=== PATIENT | female | born 1965 | race African-American/Black ===

== ENCOUNTER 2016-10-08 16:20 | Observation (INO) | payer MEDICARE ==
[~2016-10-08] VITALS: Ht 167.6 cm; Wt 105.0 kg
--- NOTE | ~2016-10-08 | OP ---
PATIENT NAME: ALISON ALCANTAR MEDICAL RECORD: [id number] :69 LOCATION:D.M2 D.2119 ADMISSION DATE:10/08/16 SURGEON: CHECO CLARK MD OPERATION DATE: 10/09/16 PROCEDURES: 1. Left heart catheterization. 2. Selective coronary angiography. 3. Left ventriculogram. INDICATION: Chest pain. PROCEDURE IN DETAIL: After informed consent was obtained and after detailed explanation of risks, benefits, as well as alternative therapies, the patient elected to proceed with angiogram. The right radial area was prepped and draped in a normal sterile fashion. The right radial artery was cannulated via modified Seldinger technique with placement o f 5-Croatian sheath. All catheters exchanged through this sheath. FINDINGS: Left ventriculogram was performed in standard 30 degree ALAS view, reveals good cardiac wall motion throughout all segments. Overall ejection fraction 55%. SELECTIVE CORONARY ANGIOGRAPHY: The left main, left anterior descending, left circumflex, and right coronary artery are all smooth-walled vessels with no angiographic evidence of coronary artery disease. OVERALL IMPRESSION: 1. No angiographic evidence of coronary artery disease. 2. Normal left heart pressures. 3. Normal left ventricular systolic function. 4. Chest pain is noncardiac in etiology. No further cardiac workup needs to be ascertained. CHECO CLARK MD CC: [id number] DICTATION DATE: 10/09/16 1400 MANUAL ARTS THERAPY TEACHER: LAURO 10/10/16 1346 DIS IN 10/09/16 [facility] [address] [place] [address]
--- NOTE | ~2016-10-08 | HEMODYNAMI ---
PATIENT:ALISON ALCANTAR MEDICAL RECORD: [id number] : 69 LOCATION:[facility] D.2119 ADMISSION DATE: 10/08/16 Generatedon:10/09/201616:27 Patient name: ALISON ALCANTAR Patient #: [id number] SSN: : 1965 Date of study: 10/09/2016 Page: Of Hemodynamic Procedure Report Patient Data Patient Demographics Procedure consent was obtained First Name: ALISON Gender: Female Last Name: ORTIZ : 1965 [facility] Initial: J Age: 50 year(s) Patient #: [id number] Race: Black Additional ID: [id number] Contact details Address: [address] [place] [address] [address] State: [place] City: [place] Zip code: [address] Past Medical History Allergies Allergen Reaction Date Comments Reported Penicillins 10/09/2016 Tetracycline 10/09/2016 Other allergy 10/09/2016 darvocet Admission Admission Data Admission Date: 10/08/2016 Admission Time: 19:06 Room #: D.2119 Lab Results Lab Result Date: 10/09/2016 Lab Result Time: 0:00 Biochemistry Name Units Result Min Max BUN mg/dl 17 --(---*)-- 7 18 Creatinine mg/dl 1 --(--*-)-- 0.6 1.3 CBC Name Units Result Min Max Hemoglobin g/dl 12.4 *-(----)-- 13.5 17.5 Procedure Procedure Types Cath Procedure Diagnostic Procedure LHC LHC w/Coronaries Miscellaneous Procedures Moderate Sedation up to 30 minutes Procedure Description Procedure Date Procedure Date: 10/09/2016 Procedure Start Time: 16:10 Procedure End Time: 16:20 Procedure Staff Name Function Chi Neville MD Performing Physician Marc Mead RT Scrub Yaneth Chua RN Nurse Galindo Rocha RT Monitor Procedure Data Cath Procedure Fluoroscopy Diagnostic fluoroscopy Total fluoroscopy Time: 2.6 time: 2.6 min min Diagnostic fluoroscopy Total fluoroscopy dose: 406 dose: 406 mGy mGy Contrast Material Contrast Material Type Amount (ml) Isovue 300 70 Entry Location Entry Primary Successful Side Size Upsize Upsize Entry Closure Serrano ccessful Closure Location (Fr) 1 (Fr) 2 (Fr) Remarks Device Remarks Radial Right 6 Fr Mechanical artery Short Compression Diagnostic catheters Device Type Used For End Catheter Placement Diagnostic Terumo 5Fr LV Angiography Likely 110cm catheter Diagnostic Infinity 5Fr Right Coronary AR 2 MOD catheter Angiography Procedure Complications No complications Procedure Medications Medication Administration Route Dosage Oxygen NC 3 l/min Lidocaine 2% added to field 20 Heparin Flush Bag added to field 2 bags (1000units/500ml NS) 0.9% NaCl I.V. 100 ml/hr Versed I.V. 1 mg Fentanyl I.V. 50 mcg Versed I.V. 1 mg Fentanyl I.V. 50 mcg Versed I.V. 2 mg Fentanyl I.V. 100 mcg Radial Cocktail I.A. 1 syringe (Verapomil 2mg/Nitro 400mcg/Heparin 1500units) Hemodynamics Rest Heart Rate: 75 (bpm) Gradients Valve Time Site Site Mean SEP/DFP Peak To Heart Use 1 2 (mmHg) (sec/min) Peak Rate (mmHg) (bpm) Aortic 16:16 LV AO 86 Snapshots Pre Cath Intra NCS Post Cath Vital Signs Time Heart Resp SPO2 etCO2 LY1bdri NIBP (mmHg) Rhythm Pain Sedatio n Rate (ipm) (%) (mmHg) (mmHg) Status Level (bpm) 15:54:36 102 19 100 0 0 170/105(127) NSR 0 (11) 10(A) , No pain 15:59:01 85 21 99 0 0 158/93(121) NSR 0 (11) 10(A) , No pain 16:03:20 72 23 100 0 0 162/100(118) NSR 0 (11) 10(A) , No pain 16:07:43 76 18 100 0 0 168/86(122) NSR 0 (11) 9(A) , No pain 16:12:05 74 20 100 0 0 138/81(114) NSR 0 (11) 9(A) , No pain 16:16:23 94 18 100 0 0 134/76(101) NSR 0 (11) 9(A) , No pain 16:20:43 81 16 100 0 0 136/78(97) NSR 0 (11) 10(A) , No pain Medications Time Medication Route Dose Verified Delivered Reason Notes Ef fectiveness by by 15:56:38 Oxygen NC 3 l/min Yaneth Yaneth used for Toma Toma lay out machine operator RN 15:56:47 Lidocaine 2% added 20ml Yaneth Yaneth used for to vial Toma Toma procedure field RN RN 15:57:00 Heparin Flush added 2 bags Yaneth Yaneth used for Bag to Toma Toma procedure (1000units/500ml field RN RN NS) 15:57:12 0.9% NaCl I.V. 100 Yaneth Yaneth used for ml/hr Toma Toma lay out machine operator RN 16:04:38 Versed I.V. 1 mg Yaneth Yaneth for Toma Toma sedation RN RN 16:04:50 Fentanyl I.V. 50 mcg Yaneth Yaneth for Toma Toma sedation RN RN 16:09:56 Versed I.V. 1 mg Yaneth Yaneth for Toma Toma sedation RN RN 16:10:03 Fentanyl I.V. 50 mcg Yaneth Yaneth for Toma Toma sedation RN RN 16:10:59 Radial Cocktail I.A. 1 Chi Mireles used for (Verapomil syringe Kelin Neville MD procedure 2mg/Nitro 400mcg/Heparin 1500units) 16:16:21 Versed I.V. 2 mg Yaneth Yaneth for Toma Toma sedation RN RN 16:16:33 Fentanyl I.V. 100 mcg Yaneth Yaneth for Toma Toma sedation RN cma Log Time Note 15:28:45 ACC Patient presents with Unstable Angina CCS Anginal Class 3--Marked limitation of physical activity, angina occurs with ordinary activity.. 15:28:55 Diagnostic Cath status Urgent 15:28:59 Galindo DELGADO(R) sent for patient. Start room use. 15:29:08 Time tracking: Regular hours 15:29:13 Plan of Care:Hemodynamics will remain stable., Cardiac rhythm will remain stable., Comfort level will be maintained., Respiratory function will remain adequate., Patient/ family verbilizes understanding of procedure., Procedure tolerated without complication., Recovers from procedure without complications.. 15::47 Lab Result : BUN 17 mg/dl :: Lab Result : Creatinine 1 mg/dl ::47 Lab Result : Hemoglobin 12.4 g/dl 15:47:56 Patient received from PCU to CCL 1 Alert and oriented. Tansferred to table in Supine position. 15:47:59 Warm blankets applied, and nicole hugger turned on for patient comfort. 15:48:15 Correct patient and procedure confirmed by team. 15:48:17 Signed procedure consent form obtained from patient. 15:49:12 H&P Date Dictated: 10/08/2016 ER History on chart.. 15:49:14 Pre-procedure instructions explained to patient. 15:49:14 Pre-op teaching completed and patient verbalized understanding. 15:53:14 Vital chart was started 15:56:38 Oxygen 3 l/min NC was administered by Yaneth Chua RN; used for procedure; 15:56:47 Lidocaine 2% 20ml vial added to field was administered by Yaneth Chua RN; used for procedure; 15:57:00 Heparin Flush Bag (1000units/500ml NS) 2 bags added to field was administered by Yaneth Chua RN; used for procedure; 15:57:12 0.9% NaCl 100 ml/hr I.V. was administered by Yaneth Chua RN; used for procedure; 16:02:07 Family in patients room. 16:02:08 Patient NPO since Midnight. 16:02:16 Patient allergic to Penicillins 16:02:23 Patient allergic to Tetracycline 16:02:34 Patient allergic to Other allergydarvocet 16:02:36 Is the patient allergic to Iodine/contrast media? No. 16:02:41 Is patient on blood thinner?Yes 16:02:44 ACC The patient was administered the following blood thiners within the last 24 hours: ACCAspirin 16:02:48 Patient diabetic? No. 16:02:52 ----Pre-sedation anethsthesia assessment.---- 16:02:54 Previous problem with sedation/anesthesia? No ? 16:02:59 Snore? Yes 16:03:00 Sleep apnea? No 16:03:01 Deviated septum? No 16:03:03 Opens mouth fully? Yes 16:03:04 Sticks out tongue? Yes 16:03:06 Airway obstruction? No ? 16:03:08 Dentures? No ? 16:03:11 Pre procedure: right dorsailis pedis pulse 1+ Palpable, but thready & weak; easily obliterated 16:03:14 Modified Louis's test Ulnar > 7 seconds. 16:03:19 Patient pain scale 0/10 ?. 16:03:24 IV patent on arrival in right antecubital with 0.9% NaCl at 10ml/hr. 16:03:28 Lab results completed and on chart. 16:03:42 Right Radial & Right Groin area was prepped with chlora-prep and draped in sterile fashion 16:03:47 Alarms reviewed by R. N. 16:03:48 Sharps counted by scrub and verified by R.N. 16:03:49 --------ALL STOP TIME OUT------ 16:03:49 Final Timeout: patient, procedure, and site verified with staff and physician. All members of the team are in agreement. 16:03:51 Right Radial & Right Groin site verified by team. 16:03:54 Physical assessment completed. ASA score P 2 - A patient with mild systemic disease as per Chi Neville MD. 16:03:58 Sedation plan: IV Moderate Sedation Versed, Fentanyl 16:04:38 Versed 1 mg I.V. was administered by Yaneth Chua RN; for sedation; 16:04:50 Fentanyl 50 mcg I.V. was administered by Yaneth Chua RN; for sedation; 16:04:57 Use device set Radial Dx 16:04:58 Acist Syringe opened to sterile field. 16:04:58 Medline Cath Pack opened to sterile field. 16:04:59 Bag Decanter opened to sterile field. 16:04:59 Terumo 6Fr Slender Glidesheath opened to sterile field. 16:05:00 St Keo 260cm J .035 wire opened to sterile field. 16:05:00 Acist Hand Control opened to sterile field. 16:05:00 Acist Manifold opened to sterile field. 16:05:01 Tegaderm 4 x 4 opened to sterile field. 16:05:08 MBrace Wrist Support opened to sterile field. 16:09:56 Versed 1 mg I.V. was administered by Yaneth Chua RN; for sedation; 16:10:03 Fentanyl 50 mcg I.V. was administered by Yaneth Chua RN; for sedation; 16::27 Procedure started. 16::27 Full Disclosure recording started 16:10:40 Local anesthetic to right radial artery with Lidocaine 2% by Chi Neville MD.INITIAL ACCESS ONLY 16:10:48 A 6 Fr Short sheath was inserted into the Right Radial artery 16:10:59 Radial Cocktail (Verapomil 2mg/Nitro 400mcg/Heparin 1500units) 1 syringe I.A. was administered by Chi Neville MD; used for procedure; 16:11:11 Zero performed for pressure channel P1 16:11:54 Baseline sample Acquired. 16:11:57 Rhythm: sinus rhythm 16:14:14 A Diagnostic Terumo 5Fr Likely 110cm catheter was advanced over the wire and used for LV Angiography. 16:14:21 LV angiography performed. 16:14:22 LV gram done using ALAS 16:14:26 Injector settings: Ml/sec: 7, Volume: 15, 16:14:43 EF : 60 % 16:15:12 LCA angiography performed. 16:16:04 Catheter removed. 16:16:13 A Diagnostic Infinity 5Fr AR 2 MOD catheter was advanced over the wire and used for Right Coronary Angiography. 16:16:18 RCA angiography performed. 16:16:21 Versed 2 mg I.V. was administered by Yaneth Chua RN; for sedation; 16:16:33 Fentanyl 100 mcg I.V. was administered by Yaneth Chua RN; for sedation; 16:18:31 Catheter removed. 16:18:41 Terumo TR Band Standard opened to sterile field. 16:19:05 Procedure ended.(Physican Out) 16:19:21 Sheath removed intact; hemostasis achieved with Mechanical Compression to the Right Radial artery. 16:19:31 Fluoroscopy time 02.60 minutes. 16:19:38 Fluoroscopy dose: 406 mGy 16:19:38 Flurop Dose total: 406 16:19:42 Contrast amount:Isovue 300 70ml. 16:19:45 Sharps counted by scrub and verified by R.N. 16:19:47 TR band inflated with 10cc of air. 16:19:49 Insertion/operative site no bleeding no hematoma. 16:19:53 Post right radial artery:stable 16:19:55 Post Procedure Pulses reassessed and unchanged 16:19:59 Post procedure rhythm: sinus rhythm 16:20:01 Post procedure instruction explained to patient.Patient verbalizes understanding. 16:20:22 Procedure type changed to Cath procedure, Diagnostic procedure, LHC, LHC w/Coronaries, Miscellaneous Procedures, Moderate Sedation up to 30 minutes 16:20:37 Procedure and supply charges have been captured, reviewed, submitted and are correct. 16:20:43 Procedure Complication : No complications 16:20:46 Vital chart was stopped 16:20:47 See physician's report for complete and final results. 16:20:49 Report given to PCU. 16:20:54 Patient transfered to PCU with Bed. 16:20:56 Procedure ended. 16:20:56 Full Disclosure recording stopped 16:20:58 End room use (Document Last) Device Usage Item Name Manufacture Quantity Catalog Hospital Part Current Minimal Lot# / Number Charge Number Stock Stock Serial# Code Acist Acist 1 [id number] [id number] [id number] 20 Syringe [employer] Medline Cardinal 1 [id number] 635136 99186 148855 5 Cath Pack Health Bag Microtek 1 [id number] [id number] 64027 394973 5 [employer] Terumo 6Fr Terumo 1 [id number] 992184 404284 493737 [address] [facility] Keo 1 916224 115298 658034 335845 30 260cm J .035 wire Acist Hand Acist 1 79205 774038 162765 928576 5 Control [employer] Inc Acist Acist 1 09956 172181 889509 316827 5 Manifold [employer] Inc Tegaderm 4 3M 1 [id number] 033534 567566 761195 5 x 4 MBrace Advanced 1 140-0250-00 013627 51856 355285 5 Wrist Vascular Support Dynamics Diagnostic Terumo 1 81-1677 552682 714602 777408 5 Terumo 5Fr Likely 110cm catheter Diagnostic Cardinal 1 [id number] 037086 765399 20 Level Four Software 5Fr AR 2 MOD catheter Terumo TR Terumo 1 [id number] 564500 195500 153692 40 Band Standard Signature Audit [place] Stage Time Signature Unsigned Intra-Procedure 10/09/2016 Galindo Rocha 4:27:32 PM RT(R) Signatures Monitor : Galindo Rocha RT Signature : Date : Time : [address] [place] [address]
[2016-10-08 02:00] VITALS: BP 157/93
[~2016-10-08 16:20] MED LIST: BAYER CHEWABLE81 MG PO; DEPAKOTE ER500 MG PO; MAXALT5 MG PO; PRINIVIL20 MG PO; RESTORIL15 MG PO; SEROQUEL100 MG PO; TOPAMAX100 MG PO
[2016-10-08 17:31] LABS: BASOPHILS 0.2 % (0-2); EOSINOPHILS 1.8 % (0-7); HEMATOCRIT 38.5 % (36.0-48.0); HEMOGLOBIN 12.7 g/dL (12-16); IMMATURE GRANULOCYTES 0.3 % (0-5); LYMPHOCYTES 35.5 % (15-50); MCH 28.6 pg (26.0-34.0); MCV 86.7 fL (80.0-100.0); MEAN PLATELET VOLUME 9.7 fL (7.4-10.4); MONOCYTES 6.3 % (2-11); NEUTROPHILS 55.9 % (40-80); PLATELET COUNT 348 10x3/uL (130-400); RBC 4.44 10x6/uL (4.00-5.40); RDW 15.8 % (11.5-14.5); WBC 8.9 10x3/uL (4.8-10.8)
[2016-10-08 17:45] LABS: ALBUMIN 3.2 g/dL (3.4-5.0); ALKALINE PHOSPHATASE 74 U/L (46-116); ALT (SGPT) 19 U/L (10-68); BILIRUBIN - TOTAL 0.29 mg/dL (0.2-1.3); CALC OSMOLALITY 280 mosm/kg (275-300); CALCIUM 8.9 mg/dL (8.5-10.1); CARBON DIOXIDE 26.6 mmol/L (21.0-32.0); CHLORIDE - SERUM 106 mmol/L (98-107); GLUCOSE 89 mg/dL (74-106); POTASSIUM - SERUM 3.7 mmol/L (3.5-5.1); PROTEIN - SERUM 7.6 g/dL (6.4-8.2); SODIUM 141 mmol/L (136-145); UREA NITROGEN 16 mg/dL (7-18); eGFR NON AFRICAN AMERICAN 63 mL/min (90-120)
[2016-10-08 17:56] LABS: CHOL - HDL RATIO 4.9 ratio (2.3-4.1); CHOLESTEROL, TOTAL 176 mg/dL (0-200); CKMB 0.6 U/L (0.0-3.6); CREATINE KINASE 176 UL (21-215); HDL CHOLESTEROL 36 mg/dL (32-96); LDL CHOLESTEROL 123 mg/dL (0-100); LDL-HDL RATIO 3.4 ratio (1.5-3.5); TRIGLYCERIDE 89 mg/dL (30-200); TROPONIN-I < 0.017 ng/mL (0.000-0.060)
[2016-10-08 21:02] VITALS: BP 151/93; Ht 167.6 cm; Wt 105.0 kg
[2016-10-08 23:50] LABS: CKMB 0.6 U/L (0.0-3.6); CREATINE KINASE 165 UL (21-215); TROPONIN-I < 0.017 ng/mL (0.000-0.060)
[2016-10-09] VITALS: BP 128/62
[2016-10-09 04:00] VITALS: BP 143/83
[2016-10-09 06:43] LABS: CKMB 0.4 U/L (0.0-3.6); CREATINE KINASE 154 UL (21-215)
[2016-10-09 06:47] LABS: TROPONIN-I < 0.017 ng/mL (0.000-0.060)
[2016-10-09 07:55] VITALS: BP 139/70
[2016-10-09 08:31] LABS: BASOPHILS 0.2 % (0-2); EOSINOPHILS 1.8 % (0-7); HEMATOCRIT 37.6 % (36.0-48.0); HEMOGLOBIN 12.4 g/dL (12-16); IMMATURE GRANULOCYTES 0.4 % (0-5); LYMPHOCYTES 23.7 % (15-50); MCH 28.6 pg (26.0-34.0); MCV 86.6 fL (80.0-100.0); MEAN PLATELET VOLUME 10.5 fL (7.4-10.4); MONOCYTES 7.2 % (2-11); NEUTROPHILS 66.7 % (40-80); PLATELET COUNT 380 10x3/uL (130-400); RBC 4.34 10x6/uL (4.00-5.40); WBC 8.6 10x3/uL (4.8-10.8)
[2016-10-09 08:35] LABS: ANION GAP 16.6 mmol/L (8-16); CALCIUM 8.8 mg/dL (8.5-10.1); CARBON DIOXIDE 22.4 mmol/L (21.0-32.0)
[2016-10-09 12:50] VITALS: BP 134/58
[2016-10-09 16:04] LABS: HCG SERUM NEGATIVE (NEGATIVE)
[2016-10-09 16:27] VITALS: BP 141/76
== END 2016-10-09 20:30 | disposition home or self-care (01) ==
LOC: D.ER 16:20 → D.M2 19:06 → OBSVTIME 19:06 → D.M2 10-09 20:30
PROVIDERS: Emergency Medicine; ADMIT Internal Medicine Interventional Cardiology
DX: R07.89 Other chest pain (principal); I11.0 Hypertensive heart disease with heart failure; I50.9 Heart failure, unspecified; Z86.73 Personal history of transient ischemic attack (TIA), and cerebral infarction without residual deficits; Z87.891 Personal history of nicotine dependence